=== PATIENT | female | born 1980 | race African-American/Black ===

== ENCOUNTER 2023-05-30 01:01 | Emergency (ER) | payer OTHER ==
[~2023-05-30] VITALS: Ht 162.6 cm; Wt 66.7 kg
[2023-05-30 01:46] VITALS: BP_SYST 140; PULSE 85; RESP 16; TEMP 97.4; O2SAT 100
[2023-05-30] MEDS: KETOROLAC TROMETHAMINE 60 MG/2 ML VIAL IM ONE (02:07)
[2023-05-30 02:21] LABS: BILIRUBIN,URINE NEGATIVE (NEGATIVE); BLOOD, URINE NEGATIVE (NEGATIVE); CLARITY/URINE CLEAR (CLEAR); COLOR,URINE YELLOW (YELLOW); GLUCOSE,URINE NEGATIVE (NEGATIVE); KETONES,URINE TRACE (NEGATIVE); LEUKOCYTE ESTERASE ,URINE NEGATIVE (NEGATIVE); NITRITE, URINE NEGATIVE (NEGATIVE); PROTEIN URINE NEGATIVE (NEGATIVE); UROBILINOGEN,URINE 0.2 (0.2-1.0)
[2023-05-30] MEDS ORDERED: NAPR-1172 PO (02:38)
== END 2023-05-30 02:40 | disposition home or self-care (01) ==
LOC: SED 01:01
DX: S33.5XXA Sprain of ligaments of lumbar spine, initial encounter (principal); Z79.899 Other long term (current) drug therapy; Z90.89 Acquired absence of other organs; F17.200 Nicotine dependence, unspecified, uncomplicated; X58.XXXA Exposure to other specified factors, initial encounter; Y93.89 Activity, other specified; Y92.89 Other specified places as the place of occurrence of the external cause; Y99.8 Other external cause status
CPT/HCPCS: 99283; 81001; 96372; J1885; 81003

== ENCOUNTER 2023-06-10 19:49 | Emergency (ER) | payer OTHER ==
[~2023-06-10] VITALS: Ht 162.6 cm; Wt 65.8 kg
[~2023-06-10 19:49] MED LIST: NAPR-1172 PO
[2023-06-10 19:58] VITALS: BP_SYST 141; PULSE 97; RESP 16; TEMP 98.3; O2SAT 98
[2023-06-10] MEDS: IPRATROPIUM/ALBUTEROL SULFATE 3 ML AMPUL.NEB (DUONEB) INH ONE (20:22)
[2023-06-10] MEDS: predniSONE 20 MG TABLET PO ONE (20:43)
[2023-06-10] MEDS ORDERED: ALBMDI INH (21:55)
[2023-06-10] MEDS ORDERED: CEFU250T85 PO (21:55)
[2023-06-10] MEDS ORDERED: METH-776 PO (21:55)
[2023-06-10 22:23] VITALS: BP_SYST 132; PULSE 92; RESP 18; TEMP 98.3; O2SAT 97
== END 2023-06-10 22:20 | disposition home or self-care (01) ==
LOC: SED 19:49
DX: J40 Bronchitis, not specified as acute or chronic (principal); R05.9 Cough, unspecified; R09.89 Other specified symptoms and signs involving the circulatory and respiratory systems; F17.200 Nicotine dependence, unspecified, uncomplicated; Z88.0 Allergy status to penicillin; Z79.899 Other long term (current) drug therapy
CPT/HCPCS: 99283; 71045; 94640; J7512